=== PATIENT | female | born 1970 | race Caucasian/White ===

== ENCOUNTER 2016-10-14 06:19 | Inpatient (IN) | payer OTHER ==
--- NOTE | ~2016-10-14 | HP ---
History And Physical [place] [id number] [facility] [place]. [address] NAME: SHWETHA OHBSON : 68 STATUS : ADM IN [facility]#: [id number] AGE: 46 ADM/REG DATE : 10/14/16 MR#: [id number] REPORT SERV DATE: 10/14/16 DICTATED BY: DATE: REPORT STATUS : Draft TRANSCRIBED BY: MODL DATE: 10/14/16 DATE OF ADMISSION: 10/14/2016 [facility] CHIEF COMPLAINT: Severe intractable right upper quadrant pain. HISTORY OF PRESENT ILLNESS: Ms. Hobson is a 46-year-old white female with history of non-small cell lung cancer, stage III, with a Pancoast tumor. She has demonstrated chest wall invasion of the Pancoast tumor in the past and is currently undergoing treatment with chemotherapy and radiation with oncologist, Dr. Vic Garner. She reports her last chemotherapy was in August, and radiation was two weeks ago. She was in her usual state of health until two days ago when she began developing some right upper quadrant pain. Despite taking her home medications, pain has progressed to a point of such severe intensity that she presented to the emergency department this morning. There, was given multiple doses of Dilaudid without much improvement and also received IV fentanyl with some improvement. She reports that IV pain medications are only lasting 30 minutes per dose at present. She denies any nausea or vomiting. She has not had any fevers or chills. She denies any dysuria, melena, or hematochezia. Denies any hematemesis. She does have some dysphagia from her chemotherapy and radiation treatments, but has been able to keep down food fluids and oral pain medications recently. Imaging in the emergency department revealed new mass in the liver since 07/2016, at the tip of the right lobe, measuring 4.7 x 5 cm, this is suspicious for metastatic disease. There is also a rounded soft tissue density between the posterior body of the stomach and spleen, measuring 3.3 x 2.6 cm new since 07/2016, suspicious for additional metastatic disease. The patient is admitted to the Hospitalist Service for management of intractable pain and progressive metastatic lung cancer with evidence of intraabdominal METS. REVIEW OF SYSTEMS: Full 14-point review of systems is negative except as dictated in the history of present illness. PAST MEDICAL HISTORY: 1. Non-small cell lung cancer, stage III, with chest wall metastasis, intraabdominal metastasis. 2. Anxiety and insomnia. 3. History of depression and PTSD. 4. History of hemoptysis. 5. Tobacco abuse. 6. History of nausea due to chemotherapy. 7. History of hyperglycemia and leukocytosis due to steroids. History And Physical [address] [address] NAME: SHWETHA HOBSON : 68 STATUS : ADM IN [facility]#: [id number] AGE: 46 ADM/REG DATE : 10/14/16 MR#: [id number] REPORT SERV DATE: 10/14/16 DICTATED BY: DATE: REPORT STATUS : Draft TRANSCRIBED BY: NOELLE DATE: 10/14/16 PAST SURGICAL HISTORY: Includes tonsillectomy, appendectomy, and hysterectomy. ALLERGIES: INCLUDE BETADINE, ASPIRIN, POVIDONE, EGGS, AND DARVOCET. MEDICATIONS: Include: 1. Prozac 20 mg p.o. daily. 2. Neurontin 300 mg p.o. twice a day. 3. Imodium 2 mg p.o. daily as needed. 4. Lorazepam 1 mg p.o. every four hours as needed. 5. MS Contin 100 mg p.o. every 12 hours. 6. Zofran ODT 4 mg p.o. every four hours as needed. 7. Oxycodone 10 mg p.o. every four hours as needed. 8. Phenergan 12.5 mg one to two tablets every six hours as needed for nausea. SOCIAL HISTORY: The patient smokes, but does not use alcohol. She is , but has a boyfriend. She has two children in her late 20s. She is self-employed and cleans houses. FAMILY HISTORY: The patient's father of lung cancer at age 74. PHYSICAL EXAMINATION: VITAL SIGNS: Blood pressure 123/68, heart rate 61, respiratory rate 12, oxygen saturation 98% on 2 liters nasal cannula, and the patient is afebrile. GENERAL: This is a thin, white female, in moderate distress due to pain. Alert and oriented in three dimensions. Pleasant. HEENT: Normocephalic, atraumatic. Pupils are equally round and reactive to light. No scleral icterus. No conjunctival pallor. No sinus tenderness to palpation. No nasal drainage. Oropharynx reveals dry mucosa, but no posterior pharyngeal erythema. No exudate. NECK: Supple with no jugular venous distention. No lymphadenopathy. No bruits. CARDIOVASCULAR: Regular rate and rhythm. No murmurs, rubs or gallops. LUNGS: Clear to auscultation bilaterally. No wheezes, crackles, or rhonchi. ABDOMEN: Exquisitely tender to palpation in the right upper quadrant with guarding and rebound. Decreased bowel sounds in four quadrants. No obvious hepatosplenomegaly. EXTREMITIES: No cyanosis, clubbing, or edema. SKIN: Normal skin turgor with no rash or skin breakdown. NEUROLOGIC: Cranial nerves 2 through 12 were tested and are intact. Deep tendon reflexes 2+ bilateral brachioradialis and patellar tendons. Sensation intact to fine touch and temperature in all four limbs. Strength is 5/5 in bilateral upper and lower extremities. LABORATORY DATA: White blood cell count 6.7, hemoglobin 11.5, hematocrit 34.1, elevated MCV of 100, platelets 240, INR 1.1. Comprehensive metabolic panel shows normal creatinine and glucose. Albumin 3.4. Normal liver enzymes. Lipase 69. Troponin is negative. Lactic acid level, negative. Urinalysis shows rare bacteria. IMAGING: CT of the abdomen and pelvis without contrast, as dictated above. IMPRESSION: 1. Metastatic non-small cell lung cancer, stage III, with history of Pancoast tumor, chest History And Physical [address] [address] NAME: SHWETHA HOBSON : 68 STATUS : ADM IN [facility]#: [id number] AGE: 46 ADM/REG DATE : 10/14/16 MR#: [id number] REPORT SERV DATE: 10/14/16 DICTATED BY: DATE: REPORT STATUS : Draft TRANSCRIBED BY: MODL DATE: 10/14/16 wall invasion, now intraabdominal metastatic disease most likely accounting for intractable pain. 2. Intractable right upper quadrant pain. 3. Anxiety, insomnia, depression, posttraumatic stress disorder. 4. Tobacco abuse with ongoing use. PLAN: 1. The patient is being admitted to [address] [place] [address] as there were no [facility] beds available presently. She is unable to receive IV fentanyl on the floor, so her Dilaudid dosing has been changed to 1 to 2 mg IV q.1 hour p.r.n. pain, and her home pain medications will be started as adjunct therapy. If her pain continues to be greater than 6/10 despite the adjustment of her IV pain medications, we will consider transitioning her to a EMERGENCY [employer]AIL [employer]IVER pump later this afternoon. 2. She has been provided with multiple antiemetics and anxiolytics. 3. Nicotine patch. 4. Consultation from Dr. Vic Garner regarding probable liver metastatic disease. STEPHANIE/NOELLE Robinson Preston M.D. / [id number] CC: Robinson Preston M.D.
--- NOTE | ~2016-10-14 | CONSULT ---
Radiation Oncology Consult [address] [address] NAME: SHWETHA MUSA : 68 STATUS : ADM IN PAT#: [id number] AGE: 46 ADM/REG DATE : 10/14/16 MR#: [id number] REPORT SERV DATE: 10/20/16 DICTATED BY: YUKO YEPEZ DATE: 10/20/16 REPORT STATUS : Draft TRANSCRIBED BY: MODSergio DATE: 10/20/16 RADIATION ONCOLOGY CONSULTATION HISTORY OF PRESENT ILLNESS: Ms. Musa is a 46-year-old white female, who recently completed chemoradiation for right apical lung cancer. Within 3 months of treatment, her cancer is now metastasized to the liver. She was being re-staged and an MRI of the brain revealed an isolated 8 mm left frontal lobe region. She has been referred for consideration of SIRS. In consultation today, Ms. Musa is somewhat despondent due to the recent bad news that she has received. She denies any headaches, nausea, or vomiting. MEDICATIONS: Reviewed and recorded. ALLERGIES: LISTED. PAST MEDICAL HISTORY: Reviewed. SOCIAL HISTORY: Reviewed. FAMILY HISTORY: Reviewed. REVIEW OF SYSTEMS: An extended review of systems was performed and is negative except as mentioned in the HPI. PHYSICAL FINDINGS: GENERAL: Reveals a thin alopecic white female, in no apparent distress. NECK: There is no obvious supraclavicular lymphadenopathy. LUNGS: Not auscultated. ABDOMEN: Thin but soft and nontender. EXTREMITIES: Without cyanosis, clubbing, or edema. PSYCH: Alert and oriented x3. NEUROLOGIC: Grossly intact. Her gait is steady. X-RAYS: CT of the brain and MRI from this admission were carefully reviewed by me. 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 RECOMMENDATIONS: This is an easy lesion to treat with SRS. This will be performed next week prior to her beginning additional systemic therapy for her recurrent cancer. INFORMED CONSENT: The benefits, rationale, and possible complications of the proposed treatment were discussed with the patient. The most likely side effects of generalized fatigue and the worse side effect of brain necrosis were mentioned. The patient consents to treatment as described. Radiation Oncology Consult [address] [address] NAME: SHWETHA MUSA : 68 STATUS : ADM IN PAT#: [id number] AGE: 46 ADM/REG DATE : 10/14/16 MR#: [id number] REPORT SERV DATE: 10/20/16 DICTATED BY: YUKO YEPEZ DATE: 10/20/16 REPORT STATUS : Draft TRANSCRIBED BY: NOELLE DATE: 10/20/16 EE/NOELLE Yuko Yepez M.D. / [id number] CC: MD Robinson Valverde M.D. Davey B. Daniel, M.D.
--- NOTE | ~2016-10-14 | DS ---
Discharge Summary [facility] [address] [place]. [address] NAME: SHWETHA MUSA : 68 STATUS : DIS IN PAT#: [id number] AGE: 46 ADM/REG DATE : 10/14/16 MR#: [id number] REPORT SERV DATE: 10/23/16 DICTATED BY: CHRISTIANO CAST DATE: 10/22/16 REPORT STATUS : Draft TRANSCRIBED BY: MODL DATE: 10/22/16 ADMISSION DATE: 10/14/2016 DISCHARGE DATE: 10/22/2016 CHIEF COMPLAINT: Intractable right upper quadrant pain. DISCHARGE DIAGNOSES: 1. Newly diagnosed metastatic lesions for her known non-small cell lung cancer. 2. Liver metastases. 3. Brain metastases. 4. Chest wall pain, history of pancreas tumor. 5. Depression and anxiety and posttraumatic stress disorder. 6. Tobacco abuse. 7. Constipation. 8. Chronic obstructive pulmonary disease with chronic hypoxic respiratory failure, on home oxygen. HISTORY OF PRESENT ILLNESS: Please see full H and P from admission by Dr. Robinson Preston. HOSPITAL COURSE: 1. Non-small cell lung cancer with new diagnoses of metastatic brain and liver lesions. At this point, the patient has progressed despite treatment. She will follow up for SBRT with Radiation Oncology to her new metastatic brain lesion and follow up with Dr. Garner as an outpatient to determine the course regarding her new liver metastases and further management. 2. Chronic pain. Her pain did worsen after her new diagnosis of metastatic lesions concerning that this may be related to underlying psychological issues and being overwhelmed with progression of her cancer. Palliative Care did see her at this point, we will discharge her on MS Contin 100 q.8 hours with MSIR for breakthrough and followup as an outpatient. 3. Depression, anxiety, and PTSD. She again was seen by Dr. Yip, who increased her Prozac. She was put back on Xanax, which we will continue to be scheduled at bedtime with p.r.n. otherwise. Recommend her followup with her outpatient mental health providers. 4. Tobacco abuse. She was given a nicotine patch here, counseled on cessation. 5. Constipation. This is chronic for her. She has had good bowel movements here with a study bowel regimen. DISCHARGE MEDICATIONS: Xanax 0.5 mg scheduled at bedtime and then q.6 hours p.r.n., Colace 100 mg p.o. b.i.d., Prozac 40 mg daily, gabapentin 300 mg p.o. t.i.d., ibuprofen 600 mg three times a day for the next five days, MS Contin 100 mg q.8 hours, MSIR 30 mg q.6 hours p.r.n., MiraLAX one packet daily p.r.n. constipation, Zofran p.r.n., Phenergan p.r.n., Imodium p.r.n. PERTINENT LABS PRIOR TO DISCHARGE: White blood cell count 5.8, hemoglobin 9.6, platelets 290. BMP grossly unremarkable. Discharge Summary [address] [address] NAME: SHWETHA MUSA : 68 STATUS : DIS IN PAT#: [id number] AGE: 46 ADM/REG DATE : 10/14/16 MR#: [id number] REPORT SERV DATE: 10/23/16 DICTATED BY: CHRISTIANO CAST DATE: 10/22/16 REPORT STATUS : Draft TRANSCRIBED BY: NOELLE DATE: 10/22/16 PERTINENT IMAGING THIS ADMISSION: MRI of the brain with and without contrast. Impression: There is now presentation of single metastatic deposit in the left frontal region. CT chest with contrast. Impression: 1. Decrease in the size of previous FDG-avid mass, right lung apex, consistent with interval response to therapy. Currently, the mass measures 4.6 x 4.9 AP by transverse dimension compared to 5.6 x 6.3 on 08/01. Underlying chronic interstitial lung disease and paraseptal emphysema pattern. 2. Minor subsegmental atelectasis, both lung bases. Stable minor focal fibrosis, inferomedial right middle lobe, inferior lingular segment. 3. No thoracic adenopathy. CT abdomen pelvis without contrast. Impression: 1. No acute abnormality of the abdomen and pelvis. 2. Metastatic disease to the tip of the right lobe of the liver and left upper quadrant since July. DISPOSITION: Home. FOLLOWUP: Follow up with Radiation Oncology and Dr. Vic Garner of Oncology. Time spent on discharge is greater than 30 minutes. DAMI/NOELLE Christiano Cast MD / [id number]
[2016-10-14 05:27] LABS: BASOPHILS 0.2 %; BASOPHILS ABSOLUTE 0.01 10/3/uL (0.0-0.16); EOSINOPHILS 7.7 %; EOSINOPHILS ABSOLUTE 0.51 10/3/uL (0.0-0.53); HEMATOCRIT 34.1 % (36.0-48.0); HEMOGLOBIN 11.5 g/dL (12.0-16.0); IMMATURE GRANULOCYTES 0.2 %; IMMATURE GRANULOCYTES ABSOLUTE 0.01 10/3/uL (0.0-0.11); LYMPHOCYTES 15.8 %; LYMPHOCYTES ABSOLUTE 1.05 10/3/uL (0.67-4.30); MEAN CORPUS HGB CONC 33.7 g/dL (32.0-36.0); MEAN CORPUSCULAR HEMOGLOB 33.8 pg (26.0-34.0); MEAN PLATELET VOLUME 9.6 fL (9.2-13.0); MONOCYTES 7.7 %; MONOCYTES ABSOLUTE 0.51 10/3/uL (0.21-1.20); NEUTROPHILS 68.4 %; NEUTROPHILS ABSOLUTE 4.56 10/3/uL (2.02-8.40); RBC DISTRIBUTION WIDTH 16.5 % (12.0-16.0)
[2016-10-14 05:30] LABS: ER CBC TAT 0 Hrs 10 Mins; MEAN CORPUSCULAR VOLUME 100.3 fL (80-100); PLATELET COUNT 240 10/3/uL (150-400); WHITE BLOOD CELLS 6.7 10/3/uL (4.5-10.5)
[2016-10-14 05:31] LABS: MANUAL DIFF NO %
[2016-10-14 05:36] LABS: INTERNATIONAL NORMAL RATI 1.1 UNITS (-); PROTIME (NOT ORD) 13.6 SEC (12.0-14.5)
[2016-10-14 05:37] LABS: PARTIAL THROMBO TIME 36.5 SEC (22.5-37.2)
[2016-10-14 05:43] LABS: ALBUMIN 3.4 G/DL (3.5-5.0); CALCIUM, SERUM 8.5 MG/DL (8.5-10.4); CHEST PAIN PROFILE TAT 0 Hrs 23 Mins; CHLORIDE, SERUM 106 MMOL/L (96-112); CO2 (CARBON DIOXIDE) 26 MMOL/L (24-34); DIRECT BILIRUBIN 0.1 MG/DL (0.0-0.4); GFR AFRICAN AMERICAN 102 ML/MIN (>=60); GFR NON AFRICAN AMERICAN 88 ML/MIN (>=60); GLUCOSE, SERUM 83 MG/DL (60-99); INDIRECT BILIRUBIN(NOT ORDER) 0.3 MG/DL (0.1-0.9); POTASSIUM, SERUM 3.6 MMOL/L (3.5-5.3); SGOT(AST) 34 U/L (5-40); SGPT(ALT) 37 U/L (5-65); SODIUM, SERUM 142 MMOL/L (135-148); TOTAL BILIRUBIN 0.4 MG/DL (0-1.2); TOTAL PROTEIN 7.2 G/DL (6.0-8.5); TROPONIN I <0.02 NG/ML (<0.05)
[2016-10-14 05:47] LABS: ALKALINE PHOSPHATASE 77 U/L (45-117); BUN (BLOOD UREA NITROGEN) 8 MG/DL (6-23)
[2016-10-14 05:48] LABS: LACTATE 1.7 MMOL/L (0.3-2.4)
[~2016-10-14 06:19] MED LIST: ACET500CAP PO; ADVIL PO; ATV1 PO; MELA3 PO; MSCONT60 PO; NEUR300 PO; NICODERM C14 MG/24 H TOP; NORCO1 TA2 PO; OXYCOD PO; OXYCONTIN30 MG PO; PR12.5 PO; PROTONIX PO; PROZAC PO; ZOFRAN ODT4 MG PO
[2016-10-14 06:56] LABS: ASCORBIC ACID (UR NOT ORDER) NEG (NEG); BILIRUBIN, URINE NEGATIVE (NEG); ER URINALYSIS TAT 0 Hrs 00 Mins; KETONE, URINE NEGATIVE (NEG); LEUKOCYTE ESTERASE(NOT OR NEG (NEG); NITRITE (URINE) NEG (NEG); WBC (NOT ORDERED) (RFLEX) 1 (0-5)
[2016-10-14] MEDS ORDERED: PROZAC PO (07:15)
[2016-10-14] MEDS ORDERED: ATV1 PO (07:16)
[2016-10-14] MEDS ORDERED: NEUR300 PO (07:16)
[2016-10-14] MEDS ORDERED: MSCONT100 PO (07:17)
[2016-10-14] MEDS ORDERED: ZOFRAN ODT4 MG PO (07:17)
[2016-10-14] MEDS ORDERED: OXYCOD PO (07:18)
[2016-10-14] MEDS ORDERED: PR12.5 PO (07:18)
[2016-10-14] MEDS ORDERED: IMOD PO (07:19)
[2016-10-16 07:26] LABS: BASOPHILS 0.3 %; BASOPHILS ABSOLUTE 0.02 10/3/uL (0.0-0.16); EOSINOPHILS 7.8 %; EOSINOPHILS ABSOLUTE 0.55 10/3/uL (0.0-0.53); HEMOGLOBIN 10.6 g/dL (12.0-16.0); IMMATURE GRANULOCYTES 0.3 %; IMMATURE GRANULOCYTES ABSOLUTE 0.02 10/3/uL (0.0-0.11); LYMPHOCYTES 18.3 %; LYMPHOCYTES ABSOLUTE 1.29 10/3/uL (0.67-4.30); MEAN CORPUS HGB CONC 33.1 g/dL (32.0-36.0); MEAN CORPUSCULAR HEMOGLOB 34.2 pg (26.0-34.0); MEAN CORPUSCULAR VOLUME 103.2 fL (80-100); MEAN PLATELET VOLUME 9.4 fL (9.2-13.0); MONOCYTES 8.8 %; MONOCYTES ABSOLUTE 0.62 10/3/uL (0.21-1.20); NEUTROPHILS 64.5 %; NEUTROPHILS ABSOLUTE 4.55 10/3/uL (2.02-8.40); PLATELET COUNT 257 10/3/uL (150-400); RBC DISTRIBUTION WIDTH 16.9 % (12.0-16.0); WHITE BLOOD CELLS 7.1 10/3/uL (4.5-10.5)
[2016-10-16 07:27] LABS: MANUAL DIFF NO %
[2016-10-16 07:42] LABS: PARTIAL THROMBO TIME 40.4 SEC (22.5-37.2)
[2016-10-16 07:57] LABS: BUN (BLOOD UREA NITROGEN) 8 MG/DL (6-23); CALCIUM, SERUM 8.8 MG/DL (8.5-10.4); CHLORIDE, SERUM 106 MMOL/L (96-112); CO2 (CARBON DIOXIDE) 28 MMOL/L (24-34); CREATININE 0.63 MG/DL (0.55-1.02); GFR AFRICAN AMERICAN 124 ML/MIN (>=60); GFR NON AFRICAN AMERICAN 107 ML/MIN (>=60); GLUCOSE, SERUM 84 MG/DL (60-99); POTASSIUM, SERUM 4.1 MMOL/L (3.5-5.3); SODIUM, SERUM 140 MMOL/L (135-148)
[2016-10-16 11:58] LABS: ALLENS TEST Pos; BE (BASE EXCESS) 2.6 MEQ/L (0 +/- 2.5); CARBOXYHEMOGLOBIN 1.2 % (0-3); DEVICE NC; HCO3 (ACTUAL BICARBONATE) 30.1 MEQ/L (23-27); HEMOBLOGIN CONTENT 11.7 G/DL (12-16); INSTRUMENT SERIAL # 8083; METHEMOGLOBIN 0.2 % (0-3); O2 CONTENT 15.2 VOL% (18-24); PCO2 (CO2 TENSION) 61 MMHG (35-45); PO2 (O2 TENSION) 73 MMHG (79-93); SAMPLE Arterial; pH 7.31 (7.37-7.43)
[2016-10-17 12:38] LABS: BUN (BLOOD UREA NITROGEN) 9 MG/DL (6-23); CALCIUM, SERUM 8.5 MG/DL (8.5-10.4); CHLORIDE, SERUM 107 MMOL/L (96-112); CO2 (CARBON DIOXIDE) 32 MMOL/L (24-34); CREATININE 0.76 MG/DL (0.55-1.02); GFR AFRICAN AMERICAN 108 ML/MIN (>=60); GFR NON AFRICAN AMERICAN 93 ML/MIN (>=60); GLUCOSE, SERUM 79 MG/DL (60-99); SODIUM, SERUM 142 MMOL/L (135-148)
[2016-10-17 12:39] LABS: POTASSIUM, SERUM 5.1 MMOL/L (3.5-5.3)
[2016-10-20 05:35] LABS: BUN (BLOOD UREA NITROGEN) 12 MG/DL (6-23); CALCIUM, SERUM 8.5 MG/DL (8.5-10.4); CHLORIDE, SERUM 101 MMOL/L (96-112); CO2 (CARBON DIOXIDE) 34 MMOL/L (24-34); CREATININE 0.76 MG/DL (0.55-1.02); GFR AFRICAN AMERICAN 108 ML/MIN (>=60); GFR NON AFRICAN AMERICAN 93 ML/MIN (>=60); GLUCOSE, SERUM 77 MG/DL (60-99); POTASSIUM, SERUM 4.5 MMOL/L (3.5-5.3); SODIUM, SERUM 139 MMOL/L (135-148)
[2016-10-20 05:50] LABS: BASOPHILS 0.2 %; BASOPHILS ABSOLUTE 0.01 10/3/uL (0.0-0.16); EOSINOPHILS ABSOLUTE 0.44 10/3/uL (0.0-0.53); HEMATOCRIT 30.1 % (36.0-48.0); HEMOGLOBIN 9.4 g/dL (12.0-16.0); IMMATURE GRANULOCYTES 0.2 %; IMMATURE GRANULOCYTES ABSOLUTE 0.01 10/3/uL (0.0-0.11); LYMPHOCYTES 20.6 %; LYMPHOCYTES ABSOLUTE 1.14 10/3/uL (0.67-4.30); MEAN CORPUSCULAR HEMOGLOB 33.5 pg (26.0-34.0); MEAN PLATELET VOLUME 9.5 fL (9.2-13.0); MONOCYTES 10.8 %; NEUTROPHILS 60.2 %; NEUTROPHILS ABSOLUTE 3.33 10/3/uL (2.02-8.40); PLATELET COUNT 274 10/3/uL (150-400); RBC DISTRIBUTION WIDTH 16.3 % (12.0-16.0); RED CELL COUNT 2.81 10/6/uL (4.0-5.6); WHITE BLOOD CELLS 5.5 10/3/uL (4.5-10.5)
[2016-10-20 05:55] LABS: MANUAL DIFF NO %; MEAN CORPUS HGB CONC 31.2 g/dL (32.0-36.0); MEAN CORPUSCULAR VOLUME 107.1 fL (80-100)
[2016-10-22 06:41] LABS: HEMATOCRIT 31.3 % (36.0-48.0); HEMOGLOBIN 9.6 g/dL (12.0-16.0); MEAN CORPUS HGB CONC 30.7 g/dL (32.0-36.0); MEAN CORPUSCULAR HEMOGLOB 33.3 pg (26.0-34.0); MEAN CORPUSCULAR VOLUME 108.7 fL (80-100); RED CELL COUNT 2.88 10/6/uL (4.0-5.6); WHITE BLOOD CELLS 5.8 10/3/uL (4.5-10.5)
[2016-10-22 06:42] LABS: BASOPHILS 0.2 %; BASOPHILS ABSOLUTE 0.01 10/3/uL (0.0-0.16); EOSINOPHILS 8.3 %; EOSINOPHILS ABSOLUTE 0.48 10/3/uL (0.0-0.53); IMMATURE GRANULOCYTES 0.2 %; IMMATURE GRANULOCYTES ABSOLUTE 0.01 10/3/uL (0.0-0.11); LYMPHOCYTES 18.9 %; LYMPHOCYTES ABSOLUTE 1.09 10/3/uL (0.67-4.30); MANUAL DIFF NO %; MEAN PLATELET VOLUME 9.4 fL (9.2-13.0); MONOCYTES 7.6 %; MONOCYTES ABSOLUTE 0.44 10/3/uL (0.21-1.20); NEUTROPHILS 64.8 %; NEUTROPHILS ABSOLUTE 3.74 10/3/uL (2.02-8.40); PLATELET COUNT 290 10/3/uL (150-400); RBC DISTRIBUTION WIDTH 16.4 % (12.0-16.0)
[2016-10-22 06:51] LABS: BUN (BLOOD UREA NITROGEN) 10 MG/DL (6-23); CALCIUM, SERUM 7.7 MG/DL (8.5-10.4); CHLORIDE, SERUM 108 MMOL/L (96-112); CO2 (CARBON DIOXIDE) 30 MMOL/L (24-34); CREATININE 0.58 MG/DL (0.55-1.02); GFR AFRICAN AMERICAN 127 ML/MIN (>=60); GFR NON AFRICAN AMERICAN 110 ML/MIN (>=60); GLUCOSE, SERUM 73 MG/DL (60-99); POTASSIUM, SERUM 4.5 MMOL/L (3.5-5.3); SODIUM, SERUM 143 MMOL/L (135-148)
[2016-10-22] MEDS ORDERED: PROTONIX PO (11:28)
[2016-10-22] MEDS ORDERED: MSIMMREL PO (11:32)
[2016-10-22] MEDS ORDERED: X5 PO ×2 (11:34)
[2016-10-22] MEDS ORDERED: IBU600 PO (11:35)
[2016-10-22] MEDS ORDERED: MIRALAX POWDER1 PKT PO (11:39)
[2016-10-22] MEDS ORDERED: HABIT14 TOP (11:39)
== END 2016-10-22 15:10 | disposition home or self-care (01) | DRG 436 ==
LOC: ER 06:19 → 5SO 08:50 → 4EA 10-16 18:35
PROVIDERS: Hospitalist; Internal Medicine; Nurse Practitioner; Obstetrics & Gynecology Gynecologic Oncology
PROC: 0FB03ZX Excision of Liver, Percutaneous Approach, Diagnostic (ICD-10-PCS; principal; 2016-10-16)
DX: C78.7 Secondary malignant neoplasm of liver and intrahepatic bile duct (principal); C79.31 Secondary malignant neoplasm of brain; J96.11 Chronic respiratory failure with hypoxia; C79.89 Secondary malignant neoplasm of other specified sites; C34.90 Malignant neoplasm of unspecified part of unspecified bronchus or lung; F41.9 Anxiety disorder, unspecified; G47.00 Insomnia, unspecified; F17.210 Nicotine dependence, cigarettes, uncomplicated; F43.10 Post-traumatic stress disorder, unspecified; J44.9 Chronic obstructive pulmonary disease, unspecified
CPT/HCPCS: 36600; 47000; 70470; 70553; 71260; 74176; 77012; 77290; 77334; 80048; 80076; 81001; 82805; 83605; 83690; 83735; 84484; 85025; 85610; 85730; 87040; 88307; 93005; 94640; 96374; 96375; 99285; A9270-GY; A9577; J1170; J1885; J2250; J2405; J2550; J3010; Q9967

== ENCOUNTER 2016-12-04 09:52 | Inpatient (IN) | payer OTHER ==
--- NOTE | ~2016-12-04 | DS ---
Discharge Summary [facility] [address] [place]. [address] NAME: SHWETHA MUSA : 68 STATUS : DIS IN PAT#: [id number] AGE: 46 ADM/REG DATE : 12/04/16 MR#: [id number] REPORT SERV DATE: 12/07/16 DICTATED BY: NGUYỄN SAMUELS II DATE: 12/06/16 REPORT STATUS : Draft TRANSCRIBED BY: MODL DATE: 12/06/16 ADMISSION DATE: 12/04/2016 DISCHARGE DATE: 12/06/2016 DISCHARGE DIAGNOSES: 1. Urinary tract infection. 2. Metastatic non-small cell lung cancer. 3. Right flank and abdominal pain likely secondary to expanding liver lesions. 4. Depression, anxiety, and posttraumatic stress disorder. 5. Chronic back pain, on chronic narcotics. CONSULTS: Vic Garner M.D., with [facility]. BRIEF HISTORY OF PRESENT ILLNESS: The patient is a 46-year-old female with the above history, who presented to [facility] due to right lower quadrant flank pain, low-grade fevers and chills. For detailed history and physical examination, please see Gaby Burger's note from 12/04/2016. HOSPITAL COURSE: On admission, the patient's urinalysis showed greater than 182 white cells, positive nitrites, large leukocyte esterase, and was started on Rocephin. Subsequent urine culture came back with pansensitive E. coli. Given the patient's progressive abdominal pain, which did not seem to be related to her UTI as it had actually been present over the last month and worsening. CT scan showed several hepatic masses consistent with metastases which have increased compared to 09/24/2016. Left lower lobe nodule likely metastasis and bibasilar atelectasis. Given the patient's progression despite treatment, Dr. Garner elected to have the patient go home with hospice. Her pain medications have been optimized. Hospice has been consulted and the patient will go home with [facility]. Otherwise, she will finish out three more days of Duricef. The patient is currently in stable condition. DISCHARGE MEDICATIONS: 1. Decadron 4 mg p.o. q.8 hours. 2. Prozac 40 mg p.o. daily. 3. Neurontin 300 mg p.o. t.i.d. 4. Morphine Immediate Release 15 mg p.o. q.6 hours p.r.n. for breakthrough. 5. Xanax 0.5 mg p.o. b.i.d. p.r.n. anxiety. 6. Lactulose p.r.n. 7. Phenergan p.r.n. 8. OxyContin ER 20 mg p.o. t.i.d. 9. Duricef 1000 mg p.o. b.i.d. x3 days. DISCHARGE INSTRUCTIONS: The patient will be discharged home with [facility]. SHELLI/NOELLE Discharge Summary [address] [place] [address] NAME: SHWETHA MUSA : 68 STATUS : DIS IN PAT#: [id number] AGE: 46 ADM/REG DATE : 12/04/16 MR#: [id number] REPORT SERV DATE: 12/07/16 DICTATED BY: NGUYỄN SAMUELS II DATE: 12/06/16 REPORT STATUS : Draft TRANSCRIBED BY: NOELLE DATE: 12/06/16 Nguyễn Samuels II, MD / [id number] CC: Nguyễn Samuels II, MD
--- NOTE | ~2016-12-04 | HP ---
History And Physical [place] [address] [address] [place]. [address] NAME: SHWETHA MUSA : 68 STATUS : ADM IN [facility]#: [id number] AGE: 46 ADM/REG DATE : 12/04/16 MR#: [id number] REPORT SERV DATE: 12/05/16 DICTATED BY: CAMILO BURGER DATE: 12/04/16 REPORT STATUS : Draft TRANSCRIBED BY: MODL DATE: 12/04/16 DATE OF ADMISSION: 12/04/2016 CHIEF COMPLAINT: Right lower quadrant flank pain, low-grade fever, and chills. HISTORY OF PRESENT ILLNESS: This patient is a 46-year-old female, who presented at [facility] Emergency Room with complaints of right flank pain, stating the pain had increased over the past 24 hours, unable to control at home. The patient has a known history of non- small cell lung cancer, is followed by Dr. Vic Garner. The patient states that Dr. Garner had started her on Cipro on 12/01/2016, but was called into the pharmacy, but the patient never picked up. The patient denies any shortness of breath. Does state that she has occasional nausea. No vomiting. Has complaints of right lower quadrant pain and right flank pain. Denies dysuria. Denies blood in urine. REVIEW OF SYSTEMS: Otherwise negative review of system except as listed above. PAST MEDICAL HISTORY: 1. Non-small cell lung cancer. 2. Anxiety. 3. Insomnia. 4. Depression. 5. PTSD. 6. Tobacco abuse. 7. Nausea. 8. Hyperglycemia and leukocytosis due to steroids. PAST SURGICAL HISTORY: 1. Appendectomy. 2. Tonsillectomy. 3. Hysterectomy. SOCIAL HISTORY: The patient is . Has boyfriend. Continues to smoke. Denies alcohol use. Denies illicit drug use. HOME MEDICATIONS: 1. Xanax 0.5 p.o. twice daily p.r.n. 2. Cipro 250 mg one p.o. every 12 hours. 3. Decadron 4 mg one p.o. every eight hours. 4. Prozac 40 mg one p.o. daily. 5. Neurontin 300 mg one p.o. three times daily. 6. Lactulose 10 g/5 mL, 30 mL p.o. every four hours. 7. MS Contin 30 mg one p.o. every 12 hours. 8. Morphine IR 15 one every six hours p.r.n. for pain. 9. Phenergan 25 mg one p.o. every four to six hours p.r.n. for nausea. 10.Opdivo last chemo 11/20/2016. History And Physical [address] [address] NAME: SHWETHA MUSA : 68 STATUS : ADM IN [facility]#: [id number] AGE: 46 ADM/REG DATE : 12/04/16 MR#: [id number] REPORT SERV DATE: 12/05/16 DICTATED BY: CAMILO BURGER DATE: 12/04/16 REPORT STATUS : Draft TRANSCRIBED BY: NOELLE DATE: 12/04/16 PHYSICAL EXAMINATION: VITAL SIGNS: O2 saturation 97% on room air, temperature is 99, pulse is 77, respirations are 18, blood pressure is 112/60. GENERAL: This patient is alert and oriented, in moderate distress at this time. HEENT: Normocephalic, atraumatic. Pupils are equal, round, and reactive to light. Mucous membranes are moist. Oropharynx is clear. NECK: No JVD. No lymphadenopathy. CARDIOVASCULAR: Regular rate and rhythm. No murmurs, rubs, or gallops. LUNGS: Clear bilateral. No wheezes, rales, or rhonchi. ABDOMEN: Soft, tender on right flank and right lower quadrant. EXTREMITIES: No cyanosis or edema. SKIN: Normal skin turgor. NEUROLOGICAL: The patient is alert and oriented x3. LABORATORY DATA: WBC is 14.9, hemoglobin 12.5, hematocrit 37.2, platelet counts 225. Sodium is 139, potassium is 5.8, chloride is 104, carbon dioxide is 26, BUN is 22, creatinine 0.09, glucose is 75, calcium is 8.3, total protein 4.3, albumin is 3.4, globulin is 4.1, total bilirubin is 1. Urine appearance cloudy, leukocyte large amount, nitrite positive, rbc's are 16, wbc's are greater than 182, wbc clumps are many, and bacteria is present. IMPRESSION: 1. Urinary tract infection. The patient will be admitted to the hospital. Urine cultures will be obtained. The patient will be started on full code. The patient will be started on ceftriaxone 1 g IV every 24 hours. 2. Right flank pain/right lower quadrant pain. The patient does present with a history of chronic pain. The pain has increased within the past 24 hours. Right flank pain is new onset. We will obtain a CT of the abdomen. We will provide the patient with Dilaudid p.r.n. 3. Non-small cell lung cancer with known metastasis. The patient is under the care Dr. Vic Garner. We will consult Oncology to follow during this hospital stay. 4. Depression/anxiety/posttraumatic stress disorder. We will continue the patient's home medications. 5. Chronic pain. The patient has seen Dr. Monge in the past during her hospitalizations. Also noted three days post last hospitalization, the patient overdosed on home narcotics. Was taken to [facility] Emergency Room. The patient will be monitored during the hospital stay. 6. Code status. The patient is a DNR. The patient has also requested hospice upon discharge. She has chosen [facility]. Choice form has been signed. product manager financial services is aware of the patient's request. The patient will be followed by Dr. Sam Cast during this hospital stay. /NOELLE Camilo Mathur History And Physical [address] [address] NAME: SHWETHA MUSA : 68 STATUS : ADM IN [facility]#: [id number] AGE: 46 ADM/REG DATE : 12/04/16 MR#: [id number] REPORT SERV DATE: 12/05/16 DICTATED BY: CAMILO BURGER DATE: 12/04/16 REPORT STATUS : Draft TRANSCRIBED BY: NOELLE DATE: 12/04/16 JAYDON Burger / [id number] CC: Hiwot Lawson M.D.
[~2016-12-04 09:52] MED LIST changes: +HABIT14 TOP; +IBU600 PO; +IMOD PO; +MIRALAX POWDER1 PKT PO; +MSCONT100 PO; +MSIMMREL PO; +X5 PO
[2016-12-04 10:41] LABS: BASOPHILS 0.1 %; BASOPHILS ABSOLUTE 0.01 10/3/uL (0.0-0.16); EOSINOPHILS 1.8 %; EOSINOPHILS ABSOLUTE 0.27 10/3/uL (0.0-0.53); HEMOGLOBIN 12.5 g/dL (12.0-16.0); IMMATURE GRANULOCYTES 0.7 %; LYMPHOCYTES 9.7 %; LYMPHOCYTES ABSOLUTE 1.45 10/3/uL (0.67-4.30); MEAN CORPUS HGB CONC 33.6 g/dL (32.0-36.0); MEAN CORPUSCULAR HEMOGLOB 33.4 pg (26.0-34.0); MEAN CORPUSCULAR VOLUME 99.5 fL (80-100); MEAN PLATELET VOLUME 8.9 fL (9.2-13.0); MONOCYTES 6.6 %; MONOCYTES ABSOLUTE 0.98 10/3/uL (0.21-1.20); NEUTROPHILS 81.1 %; NEUTROPHILS ABSOLUTE 12.06 10/3/uL (2.02-8.40); RBC DISTRIBUTION WIDTH 16.8 % (12.0-16.0); RED CELL COUNT 3.74 10/6/uL (4.0-5.6)
[2016-12-04 10:42] LABS: ER CBC TAT 0 Hrs 07 Mins; HEMATOCRIT 37.2 % (36.0-48.0); IMMATURE GRANULOCYTES ABSOLUTE 0.11 10/3/uL (0.0-0.11); MANUAL DIFF NO %; PLATELET COUNT 225 10/3/uL (150-400); WHITE BLOOD CELLS 14.9 10/3/uL (4.5-10.5)
[2016-12-04 10:55] LABS: A/G RATIO 0.8 (0.7-1.9); ALBUMIN 3.4 G/DL (3.5-5.0); CALCIUM, SERUM 8.3 MG/DL (8.5-10.4); CHLORIDE, SERUM 104 MMOL/L (96-112); GFR AFRICAN AMERICAN 88 ML/MIN (>=60); GFR NON AFRICAN AMERICAN 76 ML/MIN (>=60); GLOBULIN 4.1 G/DL (2.5-4.1); GLUCOSE, SERUM 75 MG/DL (60-99); SGPT(ALT) 37 U/L (5-65); SODIUM, SERUM 139 MMOL/L (135-148); TOTAL PROTEIN 7.5 G/DL (6.0-8.5)
[2016-12-04 10:58] LABS: ALKALINE PHOSPHATASE 122 U/L (45-117); BUN (BLOOD UREA NITROGEN) 22 MG/DL (6-23); CO2 (CARBON DIOXIDE) 26 MMOL/L (24-34); TOTAL BILIRUBIN 1.1 MG/DL (0-1.2)
[2016-12-04 10:59] LABS: POTASSIUM, SERUM 5.8 MMOL/L (3.5-5.3); SGOT(AST) 21 U/L (5-40)
[2016-12-04 11:03] LABS: ER DIFF TAT 0 Hrs 28 Mins; LYMPHOCYTES 7 %; LYMPHOCYTES ABSOLUTE (CALC) 1.04 10/3/uL (0.67-4.30); MONOCYTES 9 %; MONOCYTES ABSOLUTE (CALC) 1.34 10/3/uL (0.21-1.20); NEUTROPHILS ABSOLUTE (CALC) 12.52 10/3/uL (2.02-8.40); PLATELET ESTIMATE ADQ (ADEQUATE); RBC MORPHOLOGY NORM (NORMAL); SEGMENTED NEUTROPHIL (0) 84 %; TOTAL NUCLEATED CELLS 100
[2016-12-04 13:53] LABS: ASCORBIC ACID (UR NOT ORDER) NEG (NEG); BILIRUBIN, URINE NEGATIVE (NEG); ER URINALYSIS TAT 0 Hrs 18 Mins; KETONE, URINE NEGATIVE (NEG); LEUKOCYTE ESTERASE(NOT OR LARGE (NEG)
[2016-12-04 13:55] LABS: NITRITE (URINE) POS (NEG); WBC (NOT ORDERED) (RFLEX) > 182 (0-5)
[2016-12-04] MEDS ORDERED: MSCONTIN PO (15:12)
[2016-12-04] MEDS ORDERED: MSIMMR15 PO (15:13)
[2016-12-04] MEDS ORDERED: NEUR300 PO (15:14)
[2016-12-04] MEDS ORDERED: DEX4 PO (15:14)
[2016-12-04] MEDS ORDERED: PR25 PO (15:15)
[2016-12-04] MEDS ORDERED: PROZAC40 MG PO (15:16)
[2016-12-04] MEDS ORDERED: X5 PO (15:16)
[2016-12-04] MEDS ORDERED: CONSTULOSE PO (15:17)
[2016-12-04] MEDS ORDERED: CIP2 PO (15:19)
[2016-12-04] MEDS ORDERED: [UNRECOGNIZED DRUG - OTHER] (15:22)
[2016-12-05 04:14] LABS: BASOPHILS 0.1 %; BASOPHILS ABSOLUTE 0.01 10/3/uL (0.0-0.16); EOSINOPHILS 1.2 %; EOSINOPHILS ABSOLUTE 0.17 10/3/uL (0.0-0.53); HEMOGLOBIN 10.9 g/dL (12.0-16.0); IMMATURE GRANULOCYTES 0.7 %; IMMATURE GRANULOCYTES ABSOLUTE 0.09 10/3/uL (0.0-0.11); LYMPHOCYTES 4.7 %; LYMPHOCYTES ABSOLUTE 0.65 10/3/uL (0.67-4.30); MEAN CORPUS HGB CONC 32.9 g/dL (32.0-36.0); MEAN CORPUSCULAR HEMOGLOB 33.2 pg (26.0-34.0); MEAN CORPUSCULAR VOLUME 100.9 fL (80-100); MEAN PLATELET VOLUME 10.1 fL (9.2-13.0); MONOCYTES 4.7 %; MONOCYTES ABSOLUTE 0.65 10/3/uL (0.21-1.20); NEUTROPHILS 88.6 %; NEUTROPHILS ABSOLUTE 12.23 10/3/uL (2.02-8.40); RED CELL COUNT 3.28 10/6/uL (4.0-5.6); WHITE BLOOD CELLS 13.8 10/3/uL (4.5-10.5)
[2016-12-05 04:16] LABS: HEMATOCRIT 33.1 % (36.0-48.0); MANUAL DIFF NO %; PLATELET COUNT 300 10/3/uL (150-400)
[2016-12-05 04:32] LABS: CALCIUM, SERUM 8.2 MG/DL (8.5-10.4); CHLORIDE, SERUM 105 MMOL/L (96-112); CO2 (CARBON DIOXIDE) 26 MMOL/L (24-34); CREATININE 0.78 MG/DL (0.55-1.02); GFR AFRICAN AMERICAN 105 ML/MIN (>=60); GFR NON AFRICAN AMERICAN 91 ML/MIN (>=60); POTASSIUM, SERUM 4.4 MMOL/L (3.5-5.3); SODIUM, SERUM 138 MMOL/L (135-148)
[2016-12-05 04:58] LABS: BUN (BLOOD UREA NITROGEN) 18 MG/DL (6-23); GLUCOSE, SERUM 115 MG/DL (60-99)
[2016-12-06 04:20] LABS: BASOPHILS 0 %; EOSINOPHILS 0 %; HEMATOCRIT 31.3 % (36.0-48.0); HEMOGLOBIN 10.4 g/dL (12.0-16.0); IMMATURE GRANULOCYTES 0.5 %; IMMATURE GRANULOCYTES ABSOLUTE 0.08 10/3/uL (0.0-0.11); LYMPHOCYTES 3.1 %; LYMPHOCYTES ABSOLUTE 0.47 10/3/uL (0.67-4.30); MANUAL DIFF NO %; MEAN CORPUS HGB CONC 33.2 g/dL (32.0-36.0); MEAN CORPUSCULAR HEMOGLOB 33.1 pg (26.0-34.0); MEAN CORPUSCULAR VOLUME 99.7 fL (80-100); MEAN PLATELET VOLUME 9.8 fL (9.2-13.0); MONOCYTES 2.8 %; MONOCYTES ABSOLUTE 0.42 10/3/uL (0.21-1.20); NEUTROPHILS 93.6 %; NEUTROPHILS ABSOLUTE 13.99 10/3/uL (2.02-8.40); PLATELET COUNT 243 10/3/uL (150-400); RBC DISTRIBUTION WIDTH 16.8 % (12.0-16.0); RED CELL COUNT 3.14 10/6/uL (4.0-5.6)
[2016-12-06] MEDS ORDERED: OXYCON20 PO (14:11)
[2016-12-06] MEDS ORDERED: DURICEF PO (14:11)
== END 2016-12-06 14:38 | disposition hospice, home (50) | DRG 690 ==
LOC: ER 09:52 → 4EA 15:22
PROVIDERS: Internal Medicine; Physician Assistant
DX: N39.0 Urinary tract infection, site not specified (principal); C78.7 Secondary malignant neoplasm of liver and intrahepatic bile duct; C34.32 Malignant neoplasm of lower lobe, left bronchus or lung; J98.11 Atelectasis; F41.9 Anxiety disorder, unspecified; F32.9 Major depressive disorder, single episode, unspecified; F43.10 Post-traumatic stress disorder, unspecified; Z66 Do not resuscitate
CPT/HCPCS: 74177; 80048; 80053; 81001; 83690; 84132; 85025; 87040; 87077; 87086; 87186; 96374; 96375; 96376; 99285; A9270-GY; J1170; J2405